=== PATIENT | male | born 1945 | race Caucasian/White ===

== ENCOUNTER 2018-01-08 20:09 | Inpatient (IN) | payer OTHER ==
[~2018-01-08] VITALS: Ht 160 cm; Wt 75.3 kg
[2018-01-08 20:16] VITALS: Ht 160 cm; Wt 75.3 kg
[2018-01-08 20:57] LABS: UA SPECIFIC GRAVITY 1.015 (1.005-1.035); microscopic required? YES; urine erythrocyte TRACE (NEGATIVE)
[2018-01-08 21:00] LABS: PLATELET COUNT 227 x10^3mcL (130-400); RED CELL DISTRIBUTION WIDTH 12.7 % (11.5-14.5)
[2018-01-08 21:17] LABS: ALKALINE PHOSPHATASE 58 U/L (46-116); ALT/SGPT 34 U/L (16-63); AST/SGOT 24 U/L (15-37); BILIRUBIN TOTAL 0.9 mg/dL (0.20-1.00); CALCIUM 9.4 mg/dL (8.5-10.1); CARBON DIOXIDE 30.4 mmol/L (21-32); CHLORIDE SERUM 97 mmol/L (98-107); CREATININE SERUM 1.7 mg/dL (0.7-1.3); GLUCOSE SERUM 229 mg/dL (74-106); SODIUM SERUM 139 mmol/L (136-145); TOTAL PROTEIN, SERUM 7.6 g/dL (6.4-8.2)
[2018-01-08 21:19] LABS: BAND NEUTROPHIL 4 % (0-10); BASOPHIL 0 % (0-2); MONOCYTE 2 % (0-7); POTASSIUM SERUM 2.8 mmol/L (3.5-5.1); SEGMENTED NEUTROPHILS 90 % (37-75)
[2018-01-08 21:20] LABS: rbc morphology (normal/abnorm) NORMAL (NORMAL)
[2018-01-08] MEDS ORDERED: BACLOFEN10 MG PO (21:33)
[2018-01-08] MEDS ORDERED: JANUVIA100 M1 PO (21:34)
[2018-01-08] MEDS ORDERED: HYDROCHLOROTH12.5 M2 (21:34)
[2018-01-08] MEDS ORDERED: FINASTERIDE5 M1 PO (21:34)
[2018-01-08] MEDS ORDERED: GLIPIZIDE5 M2 PO (21:34)
[2018-01-08] MEDS ORDERED: SIMVASTATIN10 M1 PO (21:34)
[2018-01-08] MEDS ORDERED: AMLODIPINE BES2.5 M1 (21:35)
[2018-01-08] MEDS ORDERED: CHILDREN'S100 MG/52 PO (21:35)
[2018-01-08 22:34] LABS: T3 TOTAL 0.72 ng/mL
[2018-01-08 22:35] VITALS: BP 146/71
[2018-01-08 22:35] LABS: FREE T4 1.01 ng/dL (0.76-1.46); FREE THYROXINE INDEX 2.7 ug/dL (1.4-4.5); T4(THYROXINE) 7.4 ug/dL (4.7-13.3)
[2018-01-08 22:53] LABS: MAGNESIUM 1.5 mg/dL (1.8-2.4); PHOSPHOROUS 3.2 mg/dL (2.5-4.9)
[2018-01-08 23:19] LABS: AMPHETAMINE QUAL UR NONE DETECTED (NEG <=1000)
[2018-01-09] MEDS ORDERED: METFORMIN HCL1000 MG PO (00:09)
[2018-01-09 05:32] VITALS: BP 131/64
[2018-01-09 06:54] LABS: CALCIUM 8.8 mg/dL (8.5-10.1); CHLORIDE SERUM 100 mmol/L (98-107); CREATININE SERUM 1.3 mg/dL (0.7-1.3); GLUCOSE SERUM 142 mg/dL (74-106); HDL CHOLESTEROL 45 mg/dL (40-60); SODIUM SERUM 138 mmol/L (136-145); TRIGLYCERIDES 115 mg/dL (<150)
[2018-01-09 07:04] LABS: CHOLESTEROL 131 mg/dL (<200); CHOLESTEROL/HDL RATIO 2.9
[2018-01-09 07:10] LABS: PLATELET COUNT 211 x10^3mcL (130-400); RED CELL DISTRIBUTION WIDTH 13.2 % (11.5-14.5)
[2018-01-09 07:45] LABS: BAND NEUTROPHIL 5 % (0-10); BASOPHIL 0 % (0-2); MONOCYTE 3 % (0-7); PLATELET MORPHOLOGY PLATELETS NORMAL; SEGMENTED NEUTROPHILS 86 % (37-75)
[2018-01-09 08:00] VITALS: BP 133/69
[2018-01-09 09:54] VITALS: BP 131/71
[2018-01-09 14:02] VITALS: BP 108/62
[2018-01-09 17:24] VITALS: BP 115/60
[2018-01-09 20:59] VITALS: BP 120/67
[2018-01-10 05:37] VITALS: BP 140/71
[2018-01-10 06:41] LABS: CALCIUM 9.2 mg/dL (8.5-10.1); CARBON DIOXIDE 26.4 mmol/L (21-32); CHLORIDE SERUM 103 mmol/L (98-107); CREATININE SERUM 1.3 mg/dL (0.7-1.3); GLUCOSE SERUM 133 mg/dL (74-106); SODIUM SERUM 139 mmol/L (136-145)
[2018-01-10 06:54] LABS: BASOPHIL % 0.3 % (0-2); PLATELET COUNT 188 x10^3mcL (130-400); RED CELL DISTRIBUTION WIDTH 12.9 % (11.5-14.5)
[2018-01-10 08:45] VITALS: BP 137/68
[2018-01-10 09:43] VITALS: BP 140/74
[2018-01-10 13:00] VITALS: BP 130/67
[2018-01-10] MEDS ORDERED: COZ25 PO (13:28)
[2018-01-10] MEDS ORDERED: TYL325 PO (14:11)
== END 2018-01-10 15:08 | disposition home or self-care (01) | DRG 727 ==
LOC: ED 20:09 → DU 21:44
PROVIDERS: Emergency Medicine; Student in an Organized Health Care Education/Training Program
DX: N41.9 Inflammatory disease of prostate, unspecified (principal); N17.0 Acute kidney failure with tubular necrosis; E87.2 Acidosis; I10 Essential (primary) hypertension; E86.0 Dehydration; E87.6 Hypokalemia; N40.0 Benign prostatic hyperplasia without lower urinary tract symptoms; Z53.29 Procedure and treatment not carried out because of patient's decision for other reasons; D72.829 Elevated white blood cell count, unspecified; E11.65 Type 2 diabetes mellitus with hyperglycemia; E78.5 Hyperlipidemia, unspecified; Z79.84 Long term (current) use of oral hypoglycemic drugs; Z79.899 Other long term (current) drug therapy
CPT/HCPCS: 82962; 83880; 84439; 86788; 86789; 87804; J0696; J3475; J7030; Q0092